=== PATIENT | female | born 1980 | race Caucasian/White ===

== ENCOUNTER → 2017-10-27 | Outpatient (CLI) | payer OTHER ==
[~2017-10-27] MED LIST: CLIN150 PO; IBUP600T26 PO
[2017-10-27 10:15] LABS: AUTOMATED NEUTROPHIL # 2.8 TH/MM3 (1.8-7.7); BASOPHIL % 0.9 % (0.0-2.0); EOSINOPHIL # 0.1 TH/MM3 (0-0.4); EOSINOPHIL % 1.7 % (0.0-4.0); HEMATOCRIT 39.1 % (35.0-46.0); HEMOGLOBIN 13.6 GM/DL (11.6-15.3); LYMPH % 33.3 % (9.0-44.0); LYMPHOCYTE # 1.7 TH/MM3 (1.0-4.8); MEAN CELL VOLUME 86.2 FL (80.0-100.0); MEAN CORPUSCULAR HEMOGLOBIN 30.1 PG (27.0-34.0); MEAN CORPUSCULAR HGB CONC 34.9 % (32.0-36.0); MEAN PLATELET VOLUME 7.1 FL (7.0-11.0); MONO % 7.6 % (0.0-8.0); MONOCYTE # 0.4 TH/MM3 (0-0.9); NEUT % 56.5 % (16.0-70.0); PLATELET COUNT 311 TH/MM3 (150-450); RED BLOOD COUNT 4.53 MIL/MM3 (4.00-5.30)
[2017-10-27 10:24] LABS: INTERNATIONAL NORMALIZED RATIO 1.1 RATIO
[2017-10-27 10:48] LABS: ALBUMIN 4.2 GM/DL (3.4-5.0); AST (GOT) 22 U/L (15-37); BICARBONATE 25.6 MEQ/L (21.0-32.0); BLOOD UREA NITROGEN 18 MG/DL (7-18); CALCIUM 9.4 MG/DL (8.5-10.1); CHLORIDE 107 MEQ/L (98-107); CREATININE 0.83 MG/DL (0.50-1.00); GLOMERULAR FILTRATION RATE 77 ML/MIN (>89); GLUCOSE,FASTING 82 MG/DL (74-99); SODIUM (NA) 140 MEQ/L (136-145)
[2017-10-27 10:49] LABS: ALT (GPT) 27 U/L (10-53)
[2017-10-27 10:51] LABS: ALKALINE PHOSPHATASE 125 U/L (45-117); TOTAL BILIRUBIN ADULT 1.5 MG/DL (0.2-1.0); TOTAL PROTEIN 8.1 GM/DL (6.4-8.2)
== END ==
LOC: CPRE 09:26
PROVIDERS: ATTEND Obstetrics & Gynecology Gynecologic Oncology
DX: Z01.812 Encounter for preprocedural laboratory examination (principal); N87.1 Moderate cervical dysplasia
CPT/HCPCS: 36415; 80053; 85025; 85610; 85730

== ENCOUNTER → 2017-11-01 | Day surgery (SDC) | payer OTHER ==
[~2017-11-01] VITALS: Ht 160 cm; Wt 80.6 kg
[~2017-11-01] MED LIST changes: +*MEPERIDINE 25 MG INJ VIAL PERIprocedural Use ONLY ONE; +CHLORHEXIDINE GLUCONATE 2 % 1 PACK (2 CLOTHS) TOPICAL PRN; +DEXAMETHASONE SOD PHOS 4 MG/ML VIAL IV ONE; +KETOROLAC TROMETHAMINE 30 MG/ML (IVP) VIAL IV PUSH ONE; +LACTATED RINGER'S 1000 ML IV PRN; +LEVOFLOXACIN 500 MG PREMIX INJ 100 ML IV ONE; +LIDOCAINE 1%/EPINEPHrine 1:100,000 SOLN 30 ML VIAL ONE; +LIDOCAINE HCL 1% PF 5 ML SYRINGE OTHER ONE; +METOPROLOL TARTRATE 25 MG TAB PO PRN; +ONDANSETRON HCL 4 MG/2 ML VIAL IV ONE; +PHENYLEPH/NS 1000 MCG/10 ML SYR IV ONE; +POVIDONE IODINE 5% (ANTISEPSIS KIT) 4 APPLICATIONS EACH NARE PRN; +PROPOFOL 200 MG/20 ML AMP IV ONE; +SODIUM CHLORID 0.9% 500 ML IV PRN; +ePHEDrine/NS 25 MG/5 ML SYRINGE IV ONE
--- NOTE | 2017-11-01 14:24 | MP ---
cc: Marian Tello MD, Leslie D MD Bhogal,Susan AGUILERA DATE OF OPERATION: 11/01/2017 DATE OF PROCEDURE: 11/01/2017 PREOPERATIVE DIAGNOSES: 1. High grade endocervical dysplasia. 2. Status post prior supracervical hysterectomy and bilateral salpingectomy. POSTOPERATIVE DIAGNOSES: 1. High grade endocervical dysplasia. 2. Status post prior supracervical hysterectomy and bilateral salpingectomy. PROCEDURE PERFORMED: Examination under anesthesia, colposcopy, cold knife conization of the cervix and endocervical curetting. SURGEON: Marian Tello MD SHAKE LOADER: Alcides gaytancataloging assistant. ESTIMATED BLOOD LOSS: 20 mL. ANESTHESIA: Laryngeal mask. HISTORY OF PRESENT ILLNESS: A 37-year-old female status post supracervical hysterectomy, bilateral salpingectomy. Followup Pap smear abnormal, lead to colposcopy. Biopsy showed mild dysplasia on the ectocervix; however, there was a low grade dysplasia with concern about a high grade dysplasia extending into the endocervical canal above the area of previous biopsy. Ultimately, she thinks she favors having the cervix removed. We talked about further evaluation to ensure that there is no occult invasive cancer. I counseled her regarding recommendations for colposcopy, conization of the cervix. She is seen again in the preoperative holding area with her , where these findings are again reviewed, the plan is discussed, questions are answered. She expressed good understanding and agreed to move forward. FINDINGS: On exam under anesthesia, no appreciable enlarged inguinal lymph nodes. External genitalia without mass lesion. The cervix was prominent, but grossly normal, smooth circumferentially. There is no parametrial thickening or nodularity. The residual cervix is approximately 3.5 to 4 cm in length on palpation and visual inspection, above which the uterus is palpably absent. On colposcopy, there is no overt acetowhite epithelial changes or vascular changes. There are some subtle irregularities right around the transformation zone near the os. DESCRIPTION OF PROCEDURE: She was taken to the operating room and placed in dorsal lithotomy position, after general endotracheal anesthesia was administered, timeout was undertaken, she was identified by site recognition and hospital ID bracelet and proposed procedure was reviewed and confirmed. Exam under anesthesia was performed. She was prepped and draped in sterile fashion. Dilute vinegar was placed to the cervix, upper vagina. Colposcopy was performed with findings as described above. The cervix was grasped ventrally, 0 Vicryl suture [id number] at the 3 o'clock and 9 o'clock position on the lateral edge of the cervix, and lidocaine with epinephrine was injected circumferentially. A cervical probe was used to assess the depth of the cervical canal, which was approximately 3 cm and then a conization was carried out, angling in toward the endocervical canal to a height of approximately 2 cm and removed with sharp dissection. There was still scar tissue or cervical stroma above the cone. In the process of getting an endocervical curetting, a small amount of mucinous fluid extruded which, seemed to be probably a mucinous cyst in the cervix, or at the prior apex of the surgical site, and this was perhaps 10 mL of fluid, after which the drainage stopped. The bladder was filled via Cordoba catheter, filled with over 300 mL of saline under pressure, palpated, inspected and confirmed that there was no abnormal scarring or communication with the bladder and the bladder was drained. The distal edge of the cone bed was cauterized with cautery, the proximal edge Monsel solution was applied and then a Surgicel pack was placed in the cervical cone bed and the 3 and 9 o'clock sutures were tied once across the face of the cervix. All sites were completely hemostatic. There were no remaining foreign objects in the vagina other than the intentionally placed Surgicel pack. She was returned to dorsal supine position and was pending reversal of anesthesia when I left the operating room to precede her to the Postanesthesia Care Unit. MD RONAL Pimentel/JUAQUIN , 01:57 PM , 02:23 PM
[2017-11-01 15:10] VITALS: BP 117/76; PULSE 75; RESP 18; TEMP 97.7; O2SAT 97
== END | disposition home or self-care (01) ==
LOC: HSDC 10:51
PROVIDERS: ATTEND Obstetrics & Gynecology Gynecologic Oncology
DX: N87.1 Moderate cervical dysplasia (principal); Z90.710 Acquired absence of both cervix and uterus
CPT/HCPCS: 00940; 57520; 86850; 86900; 86901; 88305; 88307; J1100; J1885; J1956; J2175; J2370; J2405; J3010; J7120